=== PATIENT | male | born 1990 | race Caucasian/White ===

== ENCOUNTER 2017-05-07 04:31 | Emergency (ER) | payer BC ==
[~2017-05-07] VITALS: Ht 188 cm; Wt 169.4 kg
[2017-05-07 05:20] VITALS: BP 134/98
== END 2017-05-07 05:21 | disposition home or self-care (01) ==
LOC: EME 04:31
DX: F10.129 Alcohol abuse with intoxication, unspecified (principal); F17.200 Nicotine dependence, unspecified, uncomplicated
CPT/HCPCS: 99281; 99283